=== PATIENT | male | born 1935 | race Caucasian/White ===

== ENCOUNTER → 2020-08-12 | Day surgery (SDC) | payer MEDICARE, MEDICAID | END | disposition home or self-care (01) | LOC: RADANGIO 10:21 | PROVIDERS: ATTEND Podiatrist Foot & Ankle Surgery | DX: M86.8X7 Other osteomyelitis, ankle and foot (principal); Z79.899 Other long term (current) drug therapy | CPT/HCPCS: 36573; 71045; C1725 ==